=== PATIENT | male | born 1990 | race Caucasian/White ===

== ENCOUNTER 2016-03-24 06:52 | Emergency (ER) | payer OTHER ==
[~2016-03-24] VITALS: Ht 175.3 cm; Wt 68.2 kg
[~2016-03-24 06:52] MED LIST: ACCUPRIL10 MG PO; AMOXICILLIN 8751 TAB PO; BAYER PLUS325 MG PO; CARDI-OMEGA1000 MG PO; CEPHALEXIN500 M1 PO; EPITOL PO; HUMALOG100 U/ML SC; INSHUMULINR SQ; INSULIN N (N100 U/ML SQ; LANTUS SOLOS100 U/ML SC; LANTUS SOLOS100 U/ML SQ; LEVAQUIN 750MG750 M1 PO; LEVOTHROID0.05 MG PO; LEVOXYL0.075 MG PO; LIPITOR; NATURAL GINKGO500 MG PO; NORCO 325 MG-51 TAB PO; NOVOLIN N100 U/ML SQ; NOVOLOG FLEX100 U/ML SC; OMEGA 31000 MG PO; PRINIVIL40 MG PO; TEGRETOL X200 MG/TA1 PO; TUSS PO; ZOCOR 40MG40 MG PO
[2016-03-24 06:54] VITALS: BP 125/105; TEMP 97.9
[2016-03-24] MEDS ORDERED: CEPHALEXIN500 M1 PO (07:26)
[2016-03-24] MEDS ORDERED: BACTROBAN15 GM TOP (07:26)
[2016-03-24 08:05] VITALS: PULSE 87
== END 2016-03-24 08:14 | disposition home or self-care (01) ==
LOC: COL.ER 06:52
DX: L30.8 Other specified dermatitis (principal); B37.49 Other urogenital candidiasis; L01.00 Impetigo, unspecified; E10.65 Type 1 diabetes mellitus with hyperglycemia; Z79.4 Long term (current) use of insulin; T38.3X6A Underdosing of insulin and oral hypoglycemic [antidiabetic] drugs, initial encounter; Z91.138 Patient's unintentional underdosing of medication regimen for other reason
CPT/HCPCS: J1815

== ENCOUNTER 2016-05-22 11:14 | Inpatient (IN) | payer OTHER ==
[2016-05-22] VITALS (246 sets, daily range): BP systolic 104–125; BP diastolic 73–104; PULSE 78–87; TEMP 97.6–97.7; O2SAT 93–100
[~2016-05-22] VITALS: Ht 175.3 cm; Wt 64.0 kg
[~2016-05-22 11:14] MED LIST changes: +BACTROBAN15 GM TOP
[2016-05-22 11:58] LABS: ARTERIAL BLD GAS O2 SATURATION 96.8 % (92-100); ARTERIAL BLD GAS TCO2 CT 13.7; ARTERIAL BLOOD GAS BASE EXCESS -11.8 (-2-2); ARTERIAL BLOOD GAS HCO3 12.8 meq/L (22-26); ARTERIAL BLOOD GAS PO2 98.2 mmHg (80-100); ARTERIAL BLOOD GAS PO2T 98.2 (80-100); OXYHEMOGLOBIN 95.1 %
[2016-05-22 11:59] LABS: ATS? YES
[2016-05-22 12:15] LABS: BASO # 0.1 (0.0-0.2); EOS % 0.3 % (0-4.0); GRAN % 76.6 % (42.2-75.2); HEMATOCRIT 45.5 % (42.0-52.0); HEMOGLOBIN 15.6 g/dl (13.5-18.0); LYMPH # 1.3 (1.2-3.4); LYMPH % 16.6 % (20.0-51.0); MEAN CELL VOLUME 95 fl (80.0-100.0); MEAN CORPUSCULAR HEMOGLOBIN 33 pg (27.0-31.0); MEAN CORPUSCULAR HGB CONC 34 g/dl (33.0-37.0); MEAN PLATELET VOLUME 10.8 fl (7.4-10.4); MONO # 0.4 (0.1-0.6); MONO % 5.1 % (1.7-9.3); PLATELET COUNT 251 K/mm3 (130-400); RED BLOOD COUNT 4.77 M/mm3 (4.20-5.60); REDCELL DISTRIBUTION WIDTH-CV 12.3 % (11.5-14.5); WHITE BLOOD COUNT 7.9 K/mm3 (4.8-10.8)
[2016-05-22 12:22] LABS: ADJUSTED CALCIUM 9.4 mg/dL (8.4-10.2); ALBUMIN 4.8 gm/dL (3.5-5.0); BILIRUBIN,TOTAL 0.9 mg/dL (0.0-1.0); CREATININE, serum 0.83 mg/dL (0.66-1.25); POTASSIUM 4.8 mmol/L (3.4-5.0); TOTAL PROTEIN 8.1 gm/dL (6.4-8.2)
[2016-05-22 12:31] LABS: PH 5 (5-8); SQUAMOUS EPITHELIAL None Seen /hpf; URINE APPEARANCE Clear; URINE BACTERIA None Seen /hpf; URINE BILIRUBIN Negative (NEGATIVE); URINE BLOOD Negative (NEGATIVE); URINE COLOR Yellow; URINE GLUCOSE 3+ (NEGATIVE); URINE KETONE 2+ (NEGATIVE); URINE RBC 0-2 /hpf; URINE UROBILINOGEN Negative (NEGATIVE); URINE WBC 0-2 /hpf
[2016-05-22 16:13] LABS: MAGNESIUM 1.8 mg/dL (1.6-2.3); PHOSPHOROUS 3.6 mg/dL (2.5-4.5)
[2016-05-22 18:29] LABS: CALCIUM 8.7 mg/dL (8.4-10.2); CREATININE, serum 0.72 mg/dL (0.66-1.25); POTASSIUM 4.3 mmol/L (3.4-5.0)
== END 2016-05-22 19:40 | disposition left against medical advice (07) | DRG 639 ==
LOC: COL.ER 11:14 → ICU 13:34
PROVIDERS: Family Medicine; Internal Medicine
DX: E10.10 Type 1 diabetes mellitus with ketoacidosis without coma (principal); F17.210 Nicotine dependence, cigarettes, uncomplicated; Z91.14 Patient's other noncompliance with medication regimen
CPT/HCPCS: 99223-AI; J1650; J1815; J7030

== ENCOUNTER 2017-02-19 19:29 | Emergency (ER) | payer SELFPAY ==
[~2017-02-19] VITALS: Ht 175.3 cm; Wt 68.2 kg
[2017-02-19 19:34] VITALS: TEMP 99.4
[2017-02-19 21:37] LABS: BASO # 0.1 (0.0-0.2); BASO % 0.7 % (0.0-2.0); EOS # 0.1 (0.0-0.7); EOS % 0.6 % (0-4.0); GRAN # 7.3 (1.4-6.5); GRAN % 75.7 % (42.2-75.2); HEMATOCRIT 41.2 % (42.0-52.0); HEMOGLOBIN 13.9 g/dl (13.5-18.0); LYMPH # 1.5 (1.2-3.4); LYMPH % 15.4 % (20.0-51.0); MEAN CELL VOLUME 98 fl (80.0-100.0); MEAN CORPUSCULAR HEMOGLOBIN 33 pg (27.0-31.0); MEAN CORPUSCULAR HGB CONC 34 g/dl (33.0-37.0); MEAN PLATELET VOLUME 11.3 fl (7.4-10.4); MONO # 0.7 (0.1-0.6); MONO % 7.2 % (1.7-9.3); PLATELET COUNT 220 K/mm3 (130-400); WHITE BLOOD COUNT 9.6 K/mm3 (4.8-10.8)
[2017-02-19 21:48] LABS: ALANINE AMINOTRANSFERASE 45 U/L (21-72); ALBUMIN 4.3 gm/dL (3.5-5.0); ALKALINE PHOSPHATASE 82 U/L (50-136); ANION GAP 14 mmol/L (7-16); BILIRUBIN,TOTAL 0.7 mg/dL (0.0-1.0); BLOOD UREA NITROGEN 24 mg/dL (9-20); CALCIUM 9.2 mg/dL (8.4-10.2); CARBON DIOXIDE 19 mmol/L (22-30); CHLORIDE 95 mmol/L (98-107); POTASSIUM 5.3 mmol/L (3.4-5.0); SODIUM 129 mmol/L (137-145)
[2017-02-19 22:01] LABS: ACETONE,SERUM MODERATE
[2017-02-19 22:18] LABS: GLUCOSE 707 mg/dL (74-106)
[2017-02-19 22:38] LABS: ARTERIAL BLD GAS O2 SATURATION 95.9 % (92-100); ARTERIAL BLD GAS TCO2 CT 19.6; ARTERIAL BLOOD GAS BASE EXCESS -6.5 (-2-2); ARTERIAL BLOOD GAS HCO3 18.5 meq/L (22-26); ARTERIAL BLOOD GAS PHT 7.34 C (7.35-7.45); ARTERIAL BLOOD GAS PO2 89.9 mmHg (80-100); ARTERIAL BLOOD GAS PO2T 89.9 (80-100); ARTERIAL BLOOD GAS pH 7.34 (7.35-7.45); OXYHEMOGLOBIN 91.6 %
[2017-02-19 22:39] LABS: ALLEN TEST YES; ALLENS TEST RESULT PASS; ATS? YES
[2017-02-19] MEDS ORDERED: ZITHROMAX 250M250 MG PO (23:25)
[2017-02-20 00:06] VITALS: BP 145/85; PULSE 101
== END 2017-02-20 00:08 | disposition home or self-care (01) ==
LOC: COL.ER 19:29
PROVIDERS: Nurse Practitioner
DX: E11.9 Type 2 diabetes mellitus without complications (principal); J20.9 Acute bronchitis, unspecified; J45.909 Unspecified asthma, uncomplicated; E03.9 Hypothyroidism, unspecified; F17.210 Nicotine dependence, cigarettes, uncomplicated; Z79.4 Long term (current) use of insulin
CPT/HCPCS: J1815; J7030

== ENCOUNTER 2017-03-28 16:44 | Emergency (ER) | payer SELFPAY ==
[~2017-03-28] VITALS: Ht 175.3 cm; Wt 68.2 kg
[~2017-03-28 16:44] MED LIST changes: +ZITHROMAX 250M250 MG PO
[2017-03-28 16:45] VITALS: TEMP 97.6
[2017-03-28 17:43] LABS: BASO # 0.1 (0.0-0.2); BASO % 0.4 % (0.0-2.0); EOS % 0.1 % (0-4.0); HEMATOCRIT 49.9 % (42.0-52.0); HEMOGLOBIN 16.8 g/dl (13.5-18.0); LYMPH # 1.5 (1.2-3.4); MEAN CELL VOLUME 98 fl (80.0-100.0); MEAN CORPUSCULAR HEMOGLOBIN 33 pg (27.0-31.0); MEAN CORPUSCULAR HGB CONC 34 g/dl (33.0-37.0); MEAN PLATELET VOLUME 10.3 fl (7.4-10.4); MONO # 0.9 (0.1-0.6); MONO % 6.1 % (1.7-9.3); PLATELET COUNT 243 K/mm3 (130-400); RED BLOOD COUNT 5.12 M/mm3 (4.20-5.60); REDCELL DISTRIBUTION WIDTH-CV 13.1 % (11.5-14.5)
[2017-03-28 17:53] LABS: ALANINE AMINOTRANSFERASE 44 U/L (21-72); ALBUMIN 5.5 gm/dL (3.5-5.0); ALKALINE PHOSPHATASE 101 U/L (50-136); ANION GAP 26 mmol/L (7-16); AST,SGOT 37 U/L (15-37); BILIRUBIN,TOTAL 0.4 mg/dL (0.0-1.0); BLOOD UREA NITROGEN 11 mg/dL (9-20); CALCIUM 9.3 mg/dL (8.4-10.2); CHLORIDE 102 mmol/L (98-107); CREATININE, serum 0.93 mg/dL (0.66-1.25); GLUCOSE 214 mg/dL (74-106); LIPASE 62 U/L (23-300); SODIUM 135 mmol/L (137-145); TOTAL PROTEIN 8.6 gm/dL (6.4-8.2)
[2017-03-28 17:54] LABS: CARBON DIOXIDE 8 mmol/L (22-30)
[2017-03-28 18:05] LABS: ACETONE,SERUM MODERATE
[2017-03-28 19:54] VITALS: BP 125/85; PULSE 94
== END 2017-03-28 20:30 | disposition short-term general hospital (02) ==
LOC: COL.ER 16:44
PROVIDERS: Emergency Medicine
DX: E10.10 Type 1 diabetes mellitus with ketoacidosis without coma (principal); Z79.4 Long term (current) use of insulin; F17.200 Nicotine dependence, unspecified, uncomplicated; R00.0 Tachycardia, unspecified
CPT/HCPCS: J1815; J2405; J7030; J7070

== ENCOUNTER 2019-03-25 03:17 | Inpatient (IN) | payer MEDICAID ==
[~2019-03-25] VITALS: Ht 175.3 cm; Wt 66.8 kg
[2019-03-25] VITALS (273 sets, daily range): BP systolic 104–119; BP diastolic 63–77; PULSE 98–120; TEMP 97.9–99; O2SAT 97–100
[2019-03-25 03:38] LABS: HEMOGLOBIN 16.6 g/dl (13.5-18.0); MEAN CELL VOLUME 108 fl (80.0-100.0); MEAN CORPUSCULAR HEMOGLOBIN 34 pg (27.0-31.0); MEAN CORPUSCULAR HGB CONC 31 g/dl (33.0-37.0); MEAN PLATELET VOLUME 11.2 fl (7.4-10.4); PLATELET COUNT 340 K/mm3 (130-400); RED BLOOD COUNT 4.94 M/mm3 (4.20-5.60); REDCELL DISTRIBUTION WIDTH-CV 12.7 % (11.5-14.5)
[2019-03-25 03:39] LABS: HEMATOCRIT 53.2 % (42.0-52.0)
[2019-03-25 04:17] LABS: ALANINE AMINOTRANSFERASE 40 U/L (21-72); ALBUMIN 4.7 gm/dL (3.5-5.0); ALKALINE PHOSPHATASE 127 U/L (50-136); AST,SGOT 40 U/L (15-37); BILIRUBIN,TOTAL 0.3 mg/dL (0.0-1.0); BLOOD UREA NITROGEN 20 mg/dL (9-20); CALCIUM 8.6 mg/dL (8.4-10.2); CHLORIDE 99 mmol/L (98-107); CREATININE, serum 1.53 (0.66-1.25); LIPASE 109 U/L (23-300); POTASSIUM 6.5 mmol/L (3.4-5.0); SODIUM 138 mmol/L (137-145); TOTAL PROTEIN 7.3 gm/dL (6.4-8.2)
[2019-03-25 04:18] LABS: CARBON DIOXIDE < 5 mmol/L (22-30)
[2019-03-25 04:19] LABS: ACETONE,SERUM MODERATE
[2019-03-25] MEDS ORDERED: HUMULIN 70/3100 U/M1 SQ (04:22)
[2019-03-25] MEDS ORDERED: HUMULIN R 10100 U/ML SQ (04:23)
[2019-03-25 04:25] LABS: GLUCOSE 761 mg/dL (74-106)
[2019-03-25 04:35] LABS: BAND 15 % (0-10); EOSINOPHIL 1 % (0-4); LYMPHOCYTE 18 % (20.0-51.0); METAMYELOCYTE 2 % (0-0); NEUTROPHILS 57 % (42.0-75.2); NUCLEATED RED BLOOD CELL 1 (0-6); PLATELET ESTIMATE NORMAL (NORMAL)
[2019-03-25 05:16] LABS: COLLECTION METHOD CLEAN CATCH
[2019-03-25 05:23] LABS: MUCOUS Present /lpf; PH 5 (5-8); SQUAMOUS EPITHELIAL 0-2 /hpf; URINE APPEARANCE Clear; URINE BACTERIA Rare /hpf; URINE BILIRUBIN Negative (NEGATIVE); URINE BLOOD 1+ (NEGATIVE); URINE COLOR Yellow; URINE GLUCOSE 3+ (NEGATIVE); URINE KETONE 2+ (NEGATIVE); URINE LEUKOCYTE ESTERASE Negative (NEGATIVE); URINE NITRATE Negative (NEGATIVE); URINE PROTEIN(semi-quant) 1+ (NEGATIVE); URINE RBC 0-2 /hpf; URINE UROBILINOGEN Negative (NEGATIVE)
[2019-03-25 05:50] LABS: BLOOD UREA NITROGEN 19 mg/dL (9-20); CALCIUM 8.7 mg/dL (8.4-10.2); CHLORIDE 105 mmol/L (98-107); CREATININE, serum 1.18 (0.66-1.25); POTASSIUM 5.7 mmol/L (3.4-5.0); SODIUM 136 mmol/L (137-145)
[2019-03-25 05:52] LABS: CARBON DIOXIDE < 5 mmol/L (22-30); GLUCOSE 454 mg/dL (74-106)
[2019-03-25 09:22] LABS: CALCIUM 8.2 mg/dL (8.4-10.2); CREATININE, serum 0.97 (0.66-1.25)
[2019-03-25 11:44] LABS: ARTERIAL BLOOD GAS PCO2 13.2 mmHg (35-45); ARTERIAL BLOOD GAS PO2 138.2 mmHg (80-100); ARTERIAL BLOOD GAS pH 6.87 (7.35-7.45)
[2019-03-25 11:45] LABS: ARTERIAL BLOOD GAS BASE EXCESS -29.9 (-2-2); ARTERIAL BLOOD GAS HCO3 2.4 meq/L (22-26)
[2019-03-25 11:49] LABS: CREATININE, serum 0.91 (0.66-1.25); POTASSIUM 4.8 mmol/L (3.4-5.0)
--- NOTE | 2019-03-25 13:46 | NUR ---
INSERTER OPERATOR student met with the patient to complete inital assessment. The patient lives in [place] with his mother, Vita. The patient denies DME usage and and reports independence with ADLs. The patient receives medical care at [facility] in and patient receives medications from [facility] in with no difficulties. The patient does not have advanced directives in the EMR. DPOA-HC form provided. The patient plans to return home at discharge with his sister or mother providing transportation. business services tech will continue to follow.
[2019-03-25 13:58] LABS: CALCIUM 7.9 mg/dL (8.4-10.2); CREATININE, serum 0.76 (0.66-1.25); POTASSIUM 4.4 mmol/L (3.4-5.0)
[2019-03-25 15:50] LABS: CALCIUM 8.1 mg/dL (8.4-10.2); CREATININE, serum 0.74 (0.66-1.25); POTASSIUM 4.1 mmol/L (3.4-5.0)
[2019-03-25 17:56] LABS: CALCIUM 7.9 mg/dL (8.4-10.2); CREATININE, serum 0.64 (0.66-1.25); POTASSIUM 3.9 mmol/L (3.4-5.0)
--- NOTE | 2019-03-25 19:00 | NUR ---
RECEIVED REPORT FROM ANGELA JESUS. PT SLEEPING AT THIS TIME. VSS. CALL LIGHT WITHIN REACH. NO ACUTE S/S OF DISTRESS NOTED.
[2019-03-25 19:35] LABS: CALCIUM 7.8 mg/dL (8.4-10.2); CREATININE, serum 0.67 (0.66-1.25); POTASSIUM 4.1 mmol/L (3.4-5.0)
[2019-03-25 21:40] LABS: CALCIUM 8.1 mg/dL (8.4-10.2); CREATININE, serum 0.63 (0.66-1.25); POTASSIUM 3.9 mmol/L (3.4-5.0)
[2019-03-25 23:55] LABS: CALCIUM 8.2 mg/dL (8.4-10.2); CREATININE, serum 0.61 (0.66-1.25); POTASSIUM 3.6 mmol/L (3.4-5.0)
[2019-03-26] VITALS (31 sets, daily range): BP systolic 114–129; BP diastolic 77–86; PULSE 83–112; TEMP 98.3–98.8
[2019-03-26 01:49] LABS: CREATININE, serum 0.59 (0.66-1.25); POTASSIUM 3.6 mmol/L (3.4-5.0)
[2019-03-26 05:23] LABS: BASO % 0.2 % (0.0-2.0); EOS % 0.2 % (0-4.0); GRAN # 9.5 (1.4-6.5); GRAN % 70.8 % (42.2-75.2); LYMPH # 2.6 (1.2-3.4); LYMPH % 19.2 % (20.0-51.0); MEAN CORPUSCULAR HGB CONC 35 g/dl (33.0-37.0); MONO # 1.2 (0.1-0.6); MONO % 9.2 % (1.7-9.3); RED BLOOD COUNT 3.54 M/mm3 (4.20-5.60); REDCELL DISTRIBUTION WIDTH-CV 12.1 % (11.5-14.5)
[2019-03-26 05:34] LABS: CREATININE, serum 0.54 (0.66-1.25); POTASSIUM 3.4 mmol/L (3.4-5.0)
[2019-03-26 05:55] LABS: HEMOGLOBIN 11.8 g/dl (13.5-18.0); MEAN CORPUSCULAR HEMOGLOBIN 33 pg (27.0-31.0)
[2019-03-26 05:56] LABS: MEAN CELL VOLUME 96 fl (80.0-100.0); PLATELET COUNT 171 K/mm3 (130-400)
--- NOTE | 2019-03-26 10:05 | NUR ---
The patient is to have a screen by [facility]. veterans services specialist will continue to follow.
--- NOTE | 2019-03-26 16:05 | NUR ---
The patient is to discharge home today, 03/26. The Radha screener made a safety plan with the patient. There are additional needs at this time.
== END 2019-03-26 17:00 | disposition home or self-care (01) | DRG 638 ==
LOC: COL.ER 03:17 → IMCU 04:05 → ICU 04:05
PROVIDERS: Emergency Medicine; Physician Assistant; ADMIT Student in an Organized Health Care Education/Training Program
DX: E10.10 Type 1 diabetes mellitus with ketoacidosis without coma (principal); N17.9 Acute kidney failure, unspecified; G40.909 Epilepsy, unspecified, not intractable, without status epilepticus; F17.210 Nicotine dependence, cigarettes, uncomplicated; J45.909 Unspecified asthma, uncomplicated; D72.828 Other elevated white blood cell count; Z91.14 Patient's other noncompliance with medication regimen; Z79.4 Long term (current) use of insulin; Z91.5 Personal history of self-harm
CPT/HCPCS: 99223-AI; 99239; J1650; J1815; J2405; J7030; J7070

== ENCOUNTER 2019-11-04 07:25 | Inpatient (IN) | payer MEDICAID ==
[2019-11-04] VITALS (497 sets, daily range): BP systolic 106–110; BP diastolic 71–83; PULSE 74–106; TEMP 97.8–98.7; O2SAT 97–100
[~2019-11-04] VITALS: Ht 175.3 cm; Wt 72.5 kg
[~2019-11-04 07:25] MED LIST changes: +HUMULIN 70/3100 U/M1 SQ; +HUMULIN R 10100 U/ML SQ
[2019-11-04 07:46] LABS: BASO # 0.1 (0.0-0.2); EOS # 0.1 (0.0-0.7); GRAN # 5.1 (1.4-6.5); GRAN % 65.4 % (42.2-75.2); HEMATOCRIT 38.5 % (42.0-52.0); HEMOGLOBIN 12.8 g/dl (13.5-18.0); LYMPH # 1.9 (1.2-3.4); MEAN CELL VOLUME 97 fl (80.0-100.0); MEAN CORPUSCULAR HEMOGLOBIN 32 pg (27.0-31.0); MEAN CORPUSCULAR HGB CONC 33 g/dl (33.0-37.0); MEAN PLATELET VOLUME 11.4 fl (7.4-10.4); MONO # 0.6 (0.1-0.6); MONO % 8.2 % (1.7-9.3); PLATELET COUNT 245 K/mm3 (130-400); RED BLOOD COUNT 3.96 M/mm3 (4.20-5.60); REDCELL DISTRIBUTION WIDTH-CV 13.2 % (11.5-14.5)
[2019-11-04 07:55] LABS: ALBUMIN 4.1 gm/dL (3.5-5.0); BILIRUBIN,TOTAL 0.8 mg/dL (0.0-1.0); CALCIUM 8.6 mg/dL (8.4-10.2); CREATININE, serum 0.74 (0.66-1.25); POTASSIUM 4.8 mmol/L (3.4-5.0); TOTAL PROTEIN 6.4 gm/dL (6.4-8.2)
[2019-11-04 08:06] LABS: COLLECTION METHOD CLEAN CATCH
[2019-11-04 08:18] LABS: MUCOUS Present /lpf; PH 5 (5-8); SQUAMOUS EPITHELIAL 0-2 /hpf; URINE APPEARANCE Clear; URINE BACTERIA None Seen /hpf; URINE BILIRUBIN Negative (NEGATIVE); URINE BLOOD Negative (NEGATIVE); URINE COLOR Straw; URINE GLUCOSE 3+ (NEGATIVE); URINE KETONE 2+ (NEGATIVE); URINE LEUKOCYTE ESTERASE Negative (NEGATIVE); URINE NITRATE Negative (NEGATIVE); URINE PROTEIN(semi-quant) Negative (NEGATIVE); URINE RBC None Seen /hpf; URINE UROBILINOGEN Negative (NEGATIVE)
[2019-11-04 08:58] LABS: ARTERIAL BLD GAS O2 SATURATION 90.2 % (92-100); ARTERIAL BLD GAS TCO2 CT 15.2; ARTERIAL BLOOD GAS BASE EXCESS -10.8 (-2-2); ARTERIAL BLOOD GAS HCO3 14.2 meq/L (22-26); ARTERIAL BLOOD GAS PCO2 29.9 mmHg (35-45); ARTERIAL BLOOD GAS PO2 66.4 mmHg (80-100)
--- NOTE | 2019-11-04 09:12 | NUR ---
Report received from Maria A in ED. Patient arrived in unit at this time via stretchet. Patient able to transfer self to bed well. IV infusing well.
[2019-11-04] MEDS ORDERED: PROAIR HFA0.09 MG/AC IH (09:45)
--- NOTE | 2019-11-04 11:02 | NUR ---
Registrar Nurses' Registry met with patient to discuss discharge planning. Patient currently lives at the [facility] with his life partner, Vale and reports he checked in there yesterday. Patient states Vale does not have a working phone at this time. Patient states he and Vale were living with friends in [place] but were kicked out. Patient sees Dr. Delvalle at [facility] in [place] and gets his medications from [facility] with no difficulties. Patient has DPOA-HC documents in EMR which designates his mother, Vita (ph#[phone]). Patient's ex-, Chrissy is also listed. Patient states at discharge he plans to return to [facility]. MAR contacted Radha, Test And Research Reactor Operator at [facility] who advised patient may return there upon discharge. MAR will continue to follow.
--- NOTE | 2019-11-04 11:45 | NUR ---
Notified Dr. Aguilar of blood sugar and asked for clarification regarding fluid infusion orders. Told to give NS boluses and hold insulin for 1 hour and recheck blood sugar.
[2019-11-04 13:04] LABS: CALCIUM 8.5 mg/dL (8.4-10.2); CREATININE, serum 0.62 (0.66-1.25); POTASSIUM 4.1 mmol/L (3.4-5.0)
[2019-11-04 14:49] LABS: CALCIUM 7.7 mg/dL (8.4-10.2); CREATININE, serum 0.67 (0.66-1.25); POTASSIUM 4.2 mmol/L (3.4-5.0)
[2019-11-04 16:56] LABS: CALCIUM 7.7 mg/dL (8.4-10.2); CREATININE, serum 0.62 (0.66-1.25); POTASSIUM 4.1 mmol/L (3.4-5.0)
[2019-11-04 22:23] LABS: CALCIUM 7.9 mg/dL (8.4-10.2); CREATININE, serum 0.63 (0.66-1.25)
[2019-11-05] VITALS (421 sets, daily range): BP systolic 102–115; BP diastolic 74–92; PULSE 72–77; TEMP 97.6–97.9; O2SAT 93–100
[2019-11-05 06:16] LABS: CALCIUM 7.7 mg/dL (8.4-10.2); CREATININE, serum 0.53 (0.66-1.25); MAGNESIUM 1.9 mg/dL (1.6-2.3); POTASSIUM 3.9 mmol/L (3.4-5.0)
--- NOTE | 2019-11-05 10:49 | NUR ---
First visit from the mobile qa tester. No needs right now.
--- NOTE | 2019-11-05 11:00 | NUR ---
Patient discharged by mei andrade. Discharge packet went over wt patient. Follow up appointment with Penny CARLSON was scheduled and went over with pateint. All belongings including insulin was returned to patient.
--- NOTE | 2019-11-05 11:42 | NUR ---
Tar Processing Technician met with patient as he is to discharge today. Patient reports his partner is going to schedule him an Uber to get home. SW collaborated with ANGELA Harris about patient's transportation back to [facility]. No additional needs at this time.
== END 2019-11-05 11:00 | disposition home or self-care (01) | DRG 639 ==
LOC: COL.ER 07:25 → ICU 08:34
PROVIDERS: Family Medicine; ADMIT Internal Medicine
DX: E10.10 Type 1 diabetes mellitus with ketoacidosis without coma (principal); J45.909 Unspecified asthma, uncomplicated; F17.210 Nicotine dependence, cigarettes, uncomplicated
CPT/HCPCS: 99222-AI; 99239; J1815; J7030; J7120

== ENCOUNTER 2023-12-09 04:44 | Emergency (ER) | payer MEDICAID ==
[~2023-12-09] VITALS: Ht 175.3 cm; Wt 68.2 kg
[~2023-12-09 04:44] MED LIST changes: +NOVOLIN R100 U/ML SQ; +PROAIR HFA0.09 MG/AC IH
[2023-12-09 04:46] VITALS: TEMP 98.2
[2023-12-09] MEDS ORDERED: Insulin Regular Human (NovoLIN R/HumuLIN R) SQ ONE (05:15)
[2023-12-09] MEDS ORDERED: LR 1,000 ML IV ONE (05:15)
[2023-12-09] MEDS ORDERED: Sulfamethoxazole/Trimethoprim 800-160 MG TAB PO ONE (05:15)
[2023-12-09] MEDS ORDERED: Cephalexin 500 MG CAP PO ONE (05:15)
[2023-12-09] MEDS ORDERED: CEPHALEXIN500 M1 PO (05:24)
[2023-12-09] MEDS ORDERED: BACTRIM DS 8001 TAB PO (05:24)
[2023-12-09 06:58] VITALS: BP 117/88; PULSE 101
== END 2023-12-09 07:11 | disposition home or self-care (01) ==
LOC: COL.ER 04:44
DX: L02.214 Cutaneous abscess of groin (principal); E10.9 Type 1 diabetes mellitus without complications; Z79.4 Long term (current) use of insulin
CPT/HCPCS: J1815; J7120